=== PATIENT | female | born 1955 | race Caucasian/White ===

== ENCOUNTER 2020-05-04 07:51 | Outpatient (CLI) | payer MEDICARE ==
--- NOTE | 2020-05-04 09:05 | RAD ---
TWO VIEWS LUMBAR SPINE: COMPARISON: 09/09/2011. HISTORY: Chronic pain. FINDINGS: Stable postoperative changes. There are 5 lumbar-type vertebrae. Lumbar spine vertebral body height is maintained. There is no fracture. There is facet hypertrophy at L4 and L5. 0.7 cm of anterolisthesis of L4 upon L5. IMPRESSION: 1. Stable postoperative changes. 2. Grade I anterolisthesis of L4 upon L5. POS: [facility]
--- NOTE | 2020-05-04 10:25 | MRI ---
EXAM: MRI lumbar spine without and with contrast HISTORY: Back pain that radiates down the right leg COMPARISON: 10/20/2011 TECHNIQUE: Multiple planar multisequence MR images were obtained of the lumbar spine without and with contrast. FINDINGS: Generalized disc desiccation is seen. The disc spacers are seen at L4/5 and L5/S1. Hardware is still seen in the left pedicle of S1. The vertebral bodies demonstrate normal height and alignment without fracture or subluxation. There is a small stable 1.3 cm cyst adjacent to the left pedicle screw. No marrow signal abnormality is present. The conus medullaris terminates normally at T12/L1. No abnormal enhancement is seen on this examination. T12/L1: There is a small disc osteophyte complex. Moderate bilateral posterior facet arthrosis. Mod erate central canal stenosis. Severe bilateral neural foraminal stenosis L1/2: There is a moderate disc osteophyte complex. Moderate bilateral posterior facet arthrosis. Mo derate to severe central canal stenosis. Severe bilateral neural foraminal stenosis L2/3: There is a small disc osteophyte complex. Mild to moderate bilateral posterior facet arthrosis . Mild central canal stenosis. Mild bilateral neural foraminal stenosis L3/4: There is a small disc osteophyte complex. Moderate to severe bilateral posterior facet arthros is. Moderate central canal stenosis. Moderate bilateral neural foraminal stenosis L4/5: No significant posterior bulge or protrusion. The posterior facets are fused at this level. N o central canal stenosis. Mild right neural foraminal stenosis L5/S1: No significant posterior bulge or protrusion. Posterior facets are fused at this level. No c entral canal stenosis. Mild bilateral neural foraminal stenosis IMPRESSION: Degenerative and postsurgical changes of the lumbar spine as above. The degenerative changes in the u pper lumbar spine appear to have progressed compared to the prior MRI.
[2020-05-04] MEDS ORDERED: Magnevist 469MG/ML 20 ML VIAL ONE (11:31)
== END 2020-05-04 07:52 | disposition home or self-care (01) ==
LOC: BICMRI 07:51
PROVIDERS: ATTEND Family Medicine
DX: M47.26 Other spondylosis with radiculopathy, lumbar region (principal); G89.4 Chronic pain syndrome; M96.1 Postlaminectomy syndrome, not elsewhere classified; M43.16 Spondylolisthesis, lumbar region; Z98.890 Other specified postprocedural states
CPT/HCPCS: 72100; 72158; 82565; A9579

== ENCOUNTER 2020-05-04 08:16 | Outpatient (CLI) | payer MEDICARE ==
--- NOTE | 2020-05-04 09:28 | MMO ---
Bilateral MAMMO Bilat Screen [facility]. CLINICAL HISTORY: Patient is 65 years old and is seen for screening. The patient has the following family history of breast cancer: maternal grandmother, malignant (generic). The patient has no personal history of cancer. VIEWS: The views performed were: bilateral craniocaudal with tomosynthesis and bilateral mediolateral oblique with tomosynthesis. FILMS COMPARED: The present examination has been compared to a prior imaging study performed at [facility] on 04/09/2004. This study has been interpreted with the assistance of computer-aided detection. MAMMOGRAM FINDINGS: There are scattered fibroglandular densities. There are no suspicious masses, suspicious calcifications, or new areas of architectural distortion. IMPRESSION: THERE IS NO MAMMOGRAPHIC EVIDENCE OF MALIGNANCY. A ROUTINE FOLLOW-UP MAMMOGRAM IN 1 YEAR IS RECOMMENDED. THE RESULTS OF THIS EXAM WERE SENT TO THE PATIENT. ACR BI-RADS Category 1 - Negative MAMMOGRAPHY NOTE: 1. A negative mammogram report should not delay a biopsy if a dominant of clinically suspicious mass is present. 2. Approximately 10% to 15% of breast cancers are not detected by mammography. 3. Adenosis and dense breasts may obscure an underlying neoplasm. Reported by: GENIE PHELAN MD Electonically Signed: [id number]
--- NOTE | 2020-05-04 10:04 | BD ---
DEXA BONE DENSITOMETRY: (Dual energy X-ray Absorptiometry) DATE: 05/04/2020. HISTORY: A 65-year-old white female for age-related, postmenopausal, osteoporosis screening examination. COMPARISON: None available. FINDINGS: Height: 69 inches. Weight: 210 lbs. Age of menopausal: 40. The bone mineral density (BMD) is given in grams per square centimeter (g/cm2): BMD(g/cm2) T-score Z-score RIGHT HIP: Femoral neck: 0.574 -2.5 -1.0 Total: 0.715 -1.9 -0.6 LEFT HIP: Femoral neck: 0.610 -2.2 -0.6 Total: 0.774 -1.4 -0.1 IMPRESSION: 1) Bone mineral density of the right femoral neck is osteoporotic. Fracture risk is high. 2) Bone mineral density of the left femoral neck is osteopenic. Fracture risk is increased. OLE Nguyen POS: [facility]
== END 2020-05-04 08:17 | disposition home or self-care (01) ==
LOC: BICMAMMO 08:16
PROVIDERS: ATTEND Family Medicine
DX: Z12.31 Encounter for screening mammogram for malignant neoplasm of breast (principal); Z13.820 Encounter for screening for osteoporosis; E28.39 Other primary ovarian failure; M81.0 Age-related osteoporosis without current pathological fracture; M85.852 Other specified disorders of bone density and structure, left thigh; Z80.3 Family history of malignant neoplasm of breast; Z78.0 Asymptomatic menopausal state
CPT/HCPCS: 77063; 77067; 77080

== ENCOUNTER 2022-12-22 11:38 | Outpatient (CLI) | payer MEDICAID, MEDICARE, OTHER | END 2022-12-22 11:39 | disposition home or self-care (01) | LOC: BICMAMMO 11:38 | PROVIDERS: ATTEND Family Medicine | DX: Z12.31 Encounter for screening mammogram for malignant neoplasm of breast (principal); Z80.3 Family history of malignant neoplasm of breast | CPT/HCPCS: 77063; 77067 ==

== ENCOUNTER 2023-01-03 12:25 | Outpatient (CLI) | payer OTHER | END 2023-01-03 12:26 | disposition home or self-care (01) | LOC: BICMAMMO 12:25 | PROVIDERS: ATTEND Family Medicine | DX: Z13.820 Encounter for screening for osteoporosis (principal); M81.0 Age-related osteoporosis without current pathological fracture; Z78.0 Asymptomatic menopausal state | CPT/HCPCS: 77080 ==

== ENCOUNTER 2025-03-08 13:41 | Emergency (ER) | payer MEDICARE ==
[2025-03-08] MEDS ORDERED: Magnesium 2 GM/50 ML BAG (IN WATER) ONE (16:29)
[2025-03-08] MEDS ORDERED: cefTRIAXone (ROCEPHIN) 2 GM VIAL ONE (16:29)
[2025-03-08 16:36] LABS: Bacteria/HPF None Seen HPF (None Seen); CAUTI Indications for Culture Dysuria,urgency,freq; Glucose, Urine (Dipstick) Normal (Negative); Leukocyte Negative Leu/uL (Negative); Protein, Urine (Dipstick) Negative (Neg-Trace); RBC/HPF None Seen HPF (0-3); Specific Gravity, Urine 1.013 (1.002-1.036); WBC/HPF None Seen HPF (0-3)
[2025-03-08 16:47] LABS: Urine Culture Reflex No No
[2025-03-08 16:47] LABS: #Basophils Less than 0.03 10x3/uL (0.0-0.2); #Eosinophils Less than 0.03 10x3/uL (0.0-0.7); #Monocytes 0.32 10x3/uL (0.11-0.59); #Neutrophils 1.86 10x3/uL (1.40-6.50); %Basophils 0.3 % (0.0-1.0); %Eosinophils 0.0 % (0.0-10.0); %Lymphocytes 23.6 % (21.0-51.0); %Monocytes 11.1 % (0.0-10.0); %Neutrophils 64.7 % (42.0-75.0); Hematocrit 38.1 % (36.0-47.0); Hemoglobin 12.5 g/dL (12.0-16.0); Mean Corpuscular Hemoglobin 30.0 pg (27.0-31.0); Mean Corpuscular Volume 91.4 fL (78.0-98.0); Platelet Count 94 10x3/uL (130-400); Red Blood Cell (RBC) Count 4.17 mill/uL (4.20-5.40); White Blood Cell (WBC) Count 2.88 10x3/uL (4.8-10.8)
[2025-03-08 16:58] LABS: ALT (SGPT) 15 U/L (Less than 34); AST (SGOT) 36 U/L (11-34); Albumin 3.4 g/dL (3.1-4.5); Alkaline Phosphatase 97 U/L (40-110); Anion Gap 12 mmol/L (10-20); BUN (Urea Nitrogen) 15 mg/dL (9.8-20.1); Bilirubin, Total 0.6 mg/dL (0.3-1.2); Calc. Creatinine Clearance 0 mL/min (70-130); Calcium 8.6 mg/dL (7.8-10.44); Carbon Dioxide 26 mmol/L (23-31); Chloride 103 mmol/L (98-107); Globulin 3.0 g/dL (2.4-3.5); Glucose 86 mg/dL (80-115); Potassium 3.6 mmol/L (3.5-5.1); Sodium 137 mmol/L (136-145)
[2025-03-08 17:29] LABS: Platelet Adequacy Comment Platelets Decreased; RBC Morphology Within Normal Limits
== END 2025-03-08 18:30 | disposition home or self-care (01) ==
LOC: ERS 13:41
DX: J18.9 Pneumonia, unspecified organism (principal)
CPT/HCPCS: 71045; 80053; 81001; 83605; 83880; 84484; 85025; 87428; 93005; J0696; J3475; 96365; 96375